=== PATIENT | male | born 1990 | race Caucasian/White ===

== ENCOUNTER → 2017-02-25 | Day surgery (SDC) | payer OTHER ==
[~2017-02-25] VITALS: Ht 182.9 cm; Wt 79.4 kg
[~2017-02-25] MED LIST: EPINEPHrine 1MG/ML INJ 30ML MD-VIAL As Ordered ONE; GLYCOPYRROLATE INJ 0.2 MG/ML 2 ML VIAL As Ordered ONE; LIDOCAINE 2% INJ 100 MG/5 ML SDV (FOR ANES.) As Ordered ONE; LIDOCAINE W/EPINEPHRINE 1% 20ML VIAL As Ordered ONE; LR 1,000 ML IV SCH; MEPERIDINE INJ 25 MG/ML VIAL (J2175) IV PRN; METHYLENE BLUE 0.5% (5MG/ML) 10 ML AMP (PROVAYBLUE)(Q9968 PER 1MG) As Ordered ONE; METOCLOPRAMIDE INJ 10MG/2ML VIAL (J2765) IV PRN; MIDAZOLAM INJ 2 MG/2 ML VIAL (J2250) As Ordered ONE; NEOSTIGMINE 1MG/ML 5 ML SYRINGE (J2710) As Ordered ONE; ONDANSETRON 4MG/2ML VIAL (J2405) As Ordered ONE; ONDANSETRON 4MG/2ML VIAL (J2405) IV PRN; PERCOCET 5MG/325MG TAB PO PRN; PROPOFOL 200 MG/20 ML VIAL As Ordered ONE; ROCURONIUM BROMIDE 50 MG/5 ML VIAL As Ordered ONE; SODIUM CHLORIDE 0.9% NASAL GEL 15MG (AYR) As Ordered ONE; dexameTHASONE 4 MG/ML 1ML VIAL (J1100) As Ordered ONE; dexameTHASONE 4 MG/ML 1ML VIAL (J1100) IV ONE; fentaNYL 100 MCG/2 ML INJECTION (J3010) IV PRN; fentaNYL 250 MCG/5 ML INJECTION (J3010) As Ordered ONE
[2017-02-25 15:45] VITALS: BP 125/80
--- NOTE | 2017-03-12 19:37 | RO ---
DATE OF PROCEDURE: 02/25/2017 PREOPERATIVE DIAGNOSIS: Deviated nasal septum. POSTOPERATIVE DIAGNOSIS: Deviated nasal septum. PROCEDURE PERFORMED: Septoplasty. SURGEON: Christofer Romo M.D. MD ORDNANCE ARTIFICER: ANESTHESIA: General. CLINICAL PREAMBLE: This 26-year-old man presented to the office with history of chronic nasal congestion worse on the left side of the nasal cavity. He was unresponsive to the medical therapy, including nasal steroid sprays. Physical examination confirmed presence of deviated nasal septum to the left side of the nasal cavity. Management options, including septoplasty, have been discussed. The patient understood and consented to the procedure. OPERATING ROOM (OR) NARRATION: Patient was identified in preoperative holding and brought to the operating room in stable condition. In supine position on the operating table, patient received general anesthesia followed by orotracheal intubation without incident. Patient was prepped and draped in the usual fashion for the procedure. Both sides of the nasal cavity were packed using the cottonoid pledgets soaked in 1:1000 epinephrine. The L-strut of the nasal dorsum was palpated and found to be intact. The left side of the nasal septum was then infiltrated with 1% lidocaine with 1:100,000 epinephrine. Left hemitransfixion incision was made. Mucoperiosteal/mucoperichondrial flap was developed on the left side of the nasal septum. Disarticulation of the nasal septum was performed at the bony cartilaginous junction. Deviated portion of the vomer and perpendicular plate were resected using and cutting [place] forceps. The maxillary crest was isolated and resected using a chisel and mallet. Deviated portion of the septal cartilage was isolated and resected as well. Hemostasis was achieved. Left hemitransfixion incision was closed using #3-0 chromic sutures. The Green splints were then inserted into each side of the nasal cavity and secured internally using the #3-0 nylon suture. At the end of the procedure, sponge and instrument counts were correct. No complication was encountered. Estimated blood loss was approximately 15 mL. General anesthesia was reversed, and patient was extubated and brought to the recovery room in stable condition.
== END ==
LOC: M SDC 08:33
PROVIDERS: ATTEND Otolaryngology
DX: J34.2 Deviated nasal septum (principal); R04.0 Epistaxis; J32.9 Chronic sinusitis, unspecified
CPT/HCPCS: 30520; 88300; J1100; J2250; J2405; J2710; J3010; Q9968